=== PATIENT | male | born 1965 | race Two or more races ===

== ENCOUNTER 2025-01-12 12:29 | Emergency (ER) | payer MEDICAID ==
[~2025-01-12] VITALS: Ht 177.8 cm; Wt 87.8 kg
--- NOTE | 2025-01-12 12:48 | ED.PDOC ---
History of Present Illness HPI Comments 59M presents to the Er w/ prior MHx of schizo affective Bipolar, depression;SHx of Hernia Repair and the c/c of mental health. Pt reports on feeling very upset, lonely and depressed today due form his girlfriend kicking him out of the house. Pt states that he drank 1 pint of whiskey today. Pt notes that he has tried hanging himself in the past and currently wants to harm himself by jumping in front of a train, pt stated that he knows the trains schedule due from him watching them day and night. Denies chills, fever, N/V/D, SOB, CP. No other associated symptoms, modifiers, recent injuries or sick contacts present at this time. Time Seen by MD: 12:40 Reviewed Notes: Nurses Notes, Medications, Allergies Allergies: Coded Allergies: Ziprasidone (Verified Allergy, Unknown, 01/12/25) Uncoded Allergies: SHRIMP (Allergy, Unknown, 01/12/25) Information Source: Patient Mode of Arrival: Ambulatory Severity: Moderate Timing: Hours Duration: Since onset Prehospital treatment: None Past Medical History PAST MEDICAL HISTORY: Depression Past Medical History (Other): Schizo affective Bipolar Surgical History: Hernia Repair Family History Family History: Reviewed,noncontributory to illness, Unknown Social History Smoker: Cigarettes Alcohol: Heavy Drugs: Denies Drug Use Lives In: Home Constitutional: denies: chills, diaphoresis, fatigue, fever, malaise, sweats, weakness, others EENTM: denies: blurred vision, double vision, ear bleeding, ear discharge, ear drainage, ear pain, ear ringing, eye pain, eye redness, hearing loss, mouth pain, mouth swelling, nasal discharge, nose bleeding, nose congestion, nose pain, photophobia, tearing, throat pain, throat swelling, voice changes, others Respiratory: denies: cough, hemoptysis, orthopnea, SOB at rest, shortness of breath, SOB with excertion, stridor, wheezing, others Cardiovascular: denies: chest pain, dizzy spells, diaphoresis, Dyspnea on exertion, edema, irregular heart beat, left arm pain, lightheadedness, palpitations, PND, syncope, others Gastrointestinal: denies: abdomen distended, abdominal pain, blood streaked bowels, constipated, diarrhea, dysphagia, difficulty swallowing, hematemesis, melena, nausea, poor appetite, poor fluid intake, rectal bleeding, rectal pain, vomiting, others Genitourinary: denies: burning, dysuria, flank pain, frequency, hematuria, incontinence, penile discharge, penile sore, pain, testicle pain, testicle swelling, urgency, others Neurological: denies: dizziness, fainting, headache, left sided numbness, left sided weakness, numbness, paresthesia, pre-existing deficit, right sided numbness, right sided weakness, seizure, speech problems, tingling, tremors, weakness, others Musculoskeletal: denies: back pain, gout, joint pain, joint swelling, muscle pain, muscle stiffness, neck pain, others Integumetry: denies: bruises, change in color, change in hair/nails, dryness, laceration, lesions, lumps, rash, wounds, others Allergic/Immunocompromised: denies: Difficulty Healing, Frequent Infections, Hives, Itching, others Hematologic/Lymphatic: denies: anemia, blood clots, easy bleeding, easy bruising, swollen glands, others Endocrine: denies: excessive hunger, excessive sweating, excessive thirst, excessive urination, flushing, intolerance to cold, intolerance to heat, unexplained weight gain, unexplained weight loss, others Psychiatric: reports: bipolar disorder, depression, suicidal; denies: anxiety, hopeless, panic disorder, schizophrenia, sleepless, others All Other Systems: Reviewed and Negative Physical Exam General Appearance: No Apparent Distress HEENT: Normal ENT Inspection, Pharynx Normal, TMs Normal Neck: Full Range of Motion, Non-Tender, Normal, Normal Inspection Respiratory: Chest Non-Tender, Lungs Clear, No Accessory Muscle Use, No Respiratory Distress, Normal Breath Sounds Cardiovascular: No Edema, No JVD, No Murmur, No Gallop, Normal Peripheral Pulses, Regular Rate/Rhythm Breast Exam: Deferred Gastrointestinal: No Organomegaly, Non Tender, No Pulsatile Mass, Normal Bowel Sounds, Soft Genitalia: Deferred Pelvic: Deferred Rectal: Deferred Extremities: No calf tenderness, Normal capillary refill, Normal inspection, Normal range of motion, Non-tender, No pedal edema Musculoskeletal : Apperance: Normal Neurologic: Alert, commercial agent II-XII nml as Tested, Motor Weakness, No Motor Deficits, No Sensory Deficits, Other (The patient was suicidal) Cerebellar Function: Normal Reflexes: Normal Skin: Dry, Normal Color, Warm Lymphatic: No Adenopathy Was a procedure done? Was a procedure done?: No Differential Dx Considerations may include: Suicidal ideation, homicidal ideation, generalized weakness X-Ray, Labs, Meds, VS Vital Signs Date Time Temp Pulse Resp B/P (MAP) Pulse Ox O2 Delivery O2 Flow Rate FiO2 01/12/25 13:00 Room Air* 0 21 01/12/25 12:35 98.1 87 18 116/75 (89) 96 98.1 Lab Test 01/12/25 13:14 Range/Units Sodium Level 139 136-145 mmol/L Potassium Level 4.1 3.5-5.1 mmol/L Chloride Level 105 98-107 mmol/L Carbon Dioxide Level 24 20-31 mmol/L Anion Gap 10 5-15 Blood Urea Nitrogen 11 9-23 mg/dL Creatinine 0.99 0.700-1.30 mg/dL Glomerular Filtration Rate Calc 88 >90 mL/min BUN/Creatinine Ratio 11.1 10.0-20.0 Serum Glucose 92 74-106 mg/dL Calcium Level 9.7 8.7-10.4 mg/dL Plasma/Serum Blood Alcohol 143.4 H <10 mg/dL THE PATIENT'S ALCOHOL IS 143.4 THE CHEMISTRY PANEL IS WITHIN NORMAL LIMITS THE PATIENT WAS NOW MEDICALLY CLEARED TO BE EVALUATED BY THE PSYCHIATRIST WE ARE ORDERING A TELEMEDICINE PSYCHIATRY CONSULT Dr. Gustafson, the psychiatrist evaluated the patient and now the patient feels more sober and would like to go home. The patient was not suicidal or homicidal at this time The patient feels safe in his environment The patient will continue his Zyprexa The patient was discharged Time of 1ST Reevaluation: 13:10 Reevaluation 1ST: Unchanged Patient Education/Counseling: Diagnosis, Treatment, Prognosis, Need For Follow Up Family Education/Counseling: No Family Present Departure 1 Departure Time of Disposition: 14:12 Impression: Primary Impression: Suicidal ideation Additional Impression: Alcohol intoxication Qualified Codes: F10.920 - Alcohol use, unspecified with intoxication, uncomplicated Disposition: 01 HOME / SELF CARE / HOMELESS Condition: Fair Discharged With: Self Critical Care Note Critical Care Time?: No Stability Stability form required: No Heart Score Heart Score: Heart Score Response (Comments) Value History N/A 0 EKG N/A 0 Age N/A 0 Risk Factors N/A 0 Troponin N/A 0 Total 0 I personally scribed for JEFFRY PISANO MD ([email or web address]) on 01/12/25 at 12:48. Electronically submitted by Jose Irwin ([email or web address]). JEFFRY PISANO MD January 12, 2025 12:48
[2025-01-12] MEDS: SODIUM CHLORIDE 0.9% 1,000 ML IV ONE (13:26)
[2025-01-12 13:32] LABS: Chloride 105 mmol/L (98-107); Potassium 4.1 mmol/L (3.5-5.1); Sodium 139 mmol/L (136-145)
[2025-01-12 13:33] LABS: Anion Gap 10 (5-15); Calcium 9.7 mg/dL (8.7-10.4); Carbon Dioxide 24 mmol/L (20-31)
[2025-01-12 13:38] LABS: BUN/Creatinine Ratio 11.1 (10.0-20.0); Blood Alcohol 143.4 mg/dL (<10); Blood Urea Nitrogen 11 mg/dL (9-23); Glucose 92 mg/dL (74-106)
--- NOTE | 2025-01-12 16:07 | DVHINCON2 ---
Date of Service if different f: January 12, 2025 Consultation ([facility]) Progress: Better Labs Laboratory Tests Test 01/12/25 13:14 Sodium Level 139 mmol/L (136-145) Potassium Level 4.1 mmol/L (3.5-5.1) Chloride Level 105 mmol/L (98-107) Carbon Dioxide Level 24 mmol/L (20-31) Anion Gap 10 (5-15) Blood Urea Nitrogen 11 mg/dL (9-23) Creatinine 0.99 mg/dL (0.700-1.30) Glomerular Filtration Rate Calc 88 mL/min (>90) BUN/Creatinine Ratio 11.1 (10.0-20.0) Serum Glucose 92 mg/dL (74-106) Calcium Level 9.7 mg/dL (8.7-10.4) Plasma/Serum Blood Alcohol 143.4 mg/dL (<10) Appetite: Good Side effects of medications: No Appearance: Stated age Psychomotor activity: WNL Behavioral: Cooperative Eye contact: Appropriate Speech: WNL Affect: Appropriate, Mood Congruent Mood: Euthymic Thought processes: Linear/Goal-directed Thought content: WNL Suicidal ideations: Absent Homicidal ideations: Absent Orientation: Person, Place, Time, Situation Memory intact: Recent Intellect: Average Abstractability: WNL Concentration: Adequate Attention: Adequate Judgement: WNL Insight: Good Vitals Vital Signs Date Time Temp Pulse Resp B/P (MAP) Pulse Ox O2 Delivery O2 Flow Rate FiO2 01/12/25 13:00 Room Air* 0 21 01/12/25 12:35 98.1 87 18 116/75 (89) 96 98.1 Treatment plan discussed: With staff Medication adjusted: No Labs ordered: No Psychotherapy provided: Yes Type: Voluntary Diagnosis: Alcohol Use disorder moderate. Schizoaffective d/o Bipolar type by hx. Plan : At the time of arrival, the pt was in crisis and under the influence of alcohol. The pt does not appear to be able to handle binge drinking episodes like he used to b/c he last drank that way in late 2023. The 09/14 pint he did end up drinking likely contributed to worsening of mood and thoughts of suicide. The pt currently denies all thoughts of suicide or homicide, all symptoms of psychosis and is future oriented, wants to return to [facility] to continue working on sobriety and is committed to resume attending AA meetings to get back on track. This is suggestive of improved insight and judgment on the part of the patient. Based on this interview and evaluation, the pt appears to pose a low risk of moncho m to self or others and can return to sober living when medically cleared. Pt has meds at home as well has refills, has access to OP provider, so no med scripts are needed at this time. History of Present Illness Reason for Consult : Suicidal thoughts with plan to jump in front of a train. HPI : Per ER note by Dr. Washington "Pt reports on feeling very upset, lonely and depressed today due form his girlfriend kicking him out of the house. Pt states that he drank 1 pint of whiskey today. Pt notes that he has tried hanging himself in the past and currently wants to harm himself by jumping in front of a train." Pt says that he was in sober living after getting kicked out from his girlfriend's home months ago. Today, he was having bad memories of his past related to the GF kicking him out. He went out and got some alcohol and drank about 1/4 pint of hard liquor. Pt started to feel sad and depressed after drinking alcohol. Pt takes Zyprexa 10 mg and another medicine he can't remember the name of. Pt just picked up a refill a few days ago and has on outpt prescriber he is connected to. He can return to the [facility] upon the contract that he cannot go back outside for any reason for the next 30 days. The pt is in agreement with this and wishes to abide by these terms. The pt says that he no longer feels suicidal, he feels sober now and thinks that he can be safe in the community, wants to go home and resume his recovery. Pt's last drink before this was in late 2023. Pt will be doing online AA meetings at the [facility]. The business owner/engineer and persons who run the [facility] are ok with him returning back with the aforementioned provisos. Past Psychiatric History : Last time MH IP was in 2020, 3 times in lifetime. Pt has diagnosis of bipolar disorder. Past Medical History : Denies. Allergic to shrimp. No other drugs used besides alcohol. Does smoke cigarettes 8 - 10 a day. Wiling to stop. Social History : Assessment/Diagnosis/Plan Reviewed: Care Plan, Labs, Medications THUY COYNE MD January 12, 2025 16:07
[2025-01-12 16:56] VITALS: BP 124/82; PULSE 96; RESP 19; TEMP 98; O2SAT 97
== END 2025-01-12 16:58 | disposition home or self-care (01) ==
LOC: ER 12:29
DX: R45.851 Suicidal ideations (principal); F10.129 Alcohol abuse with intoxication, unspecified; F17.210 Nicotine dependence, cigarettes, uncomplicated; F25.0 Schizoaffective disorder, bipolar type; F32.A Depression, unspecified; Z98.890 Other specified postprocedural states
CPT/HCPCS: 36415; 80048; 80320